=== PATIENT | female | born 1960 | race Caucasian/White ===

== ENCOUNTER 2017-04-15 10:55 | Day surgery (SDC) | payer BC, OTHER ==
[~2017-04-15 10:55] MED LIST: Lactated Ringers 1,000 ML IV SCH
--- NOTE | 2017-04-15 12:02 | PCM.PREANE ---
Preanesthetic Assessment - Anesthesia/Transfusion/Family Hx Anesthesia History: Prior Anesthesia Without Reaction Family History of Anesthesia Reaction: No Transfusion History: No Prior Transfusion(s) Intubation History: Unknown - Review of Systems General: No Symptoms Pulmonary: No Symptoms Cardiovascular: No Symptoms Gastrointestinal: No Symptoms, Other (family h/o colon cancer) Neurological: No Symptoms Other: Reports: None - Physical Assessment O2 Sat by Pulse Oximetry: 97 Respiratory Rate: 16 Vital Signs: Last Vital Signs Temp 36.1 C 04/15/17 11:06 Pulse 82 04/15/17 11:06 Resp 16 04/15/17 11:06 BP 149/80 H 04/15/17 11:06 Pulse Ox 97 04/15/17 11:06 Height: 1.6 m Weight: 102.058 kg ASA Class: 2 Mental Status: Alert & Oriented x3 Airway Class: Mallampati = 2 Dentition: Reports: Normal Dentition Thyro-Mental Finger Breadths: 3 Mouth Opening Finger Breadths: 3 ROM/Head Extension: Full Lungs: Clear to Auscultation, Normal Respiratory Effort Cardiovascular: Regular Rate, Regular Rhythm - Allergies Allergies/Adverse Reactions: Allergies Allergy/AdvReac Type Severity Reaction Status Date / Time seasonal allergies Allergy Itching Uncoded 02/21/14 21:07 - Blood Blood Available: No - Anesthesia Plan Pre-Op Medication Ordered: None - Acknowledgements Anesthesia Type Planned: MAC Pt an Appropriate Candidate for the Planned Anesthesia: Yes Alternatives and Risks of Anesthesia Discussed w Pt/Guardian: Yes Pt/Guardian Understands and Agrees with Anesthesia Plan: Yes PreAnesthesia Questionnaire HEENT History: Reports: Other (See Below) Other HEENT History: wears glasses Cardiovascular History: Reports: High Cholesterol, Hypertension Gastrointestinal History: Reports: None Genitourinary History: Reports: None Psychiatric History: Reports: Anxiety, Depression Endocrine/Metabolic History: Reports: Obesity/BMI 30+ (BMI 39.9) Hematologic History: Reports: Iron Deficiency Oncologic (Cancer) History: Reports: Other (See Below) Other Oncologic History: uterine - Past Surgical History Head Surgeries/Procedures: Reports: None GI Surgical History: Reports: Colonoscopy Female Surgical History: Reports: Hysterectomy, Salpingo-Oophorectomy Other Female Surgeries/Procedures: laparoscopy, hysterectomy for uterine cancer - SUBSTANCE USE Smoking Status *Q: Never Smoker Second Hand Smoke Exposure: No Days Per Week of Alcohol Use: 0 Recreational Drug Use History: No - HOME MEDS Home Medications: Home Meds Calcium Carbonate/Vitamin D3 [Calcium 600 + Vit D 400] 1 tab PO BID 02/21/14 [ History] Metoprolol Succinate 50 mg PO DAILY 02/21/14 [History] Multivitamin [Multi Vitamin Daily] 1 tab PO DAILY 02/21/14 [History] Cholecalciferol (Vitamin D3) [Vitamin D3] 2 tab PO BID 04/10/17 [History] Ferrous Sulfate [Iron] 325 mg PO ASDIRECTED 04/10/17 [History] Fish Oil/DHA/EPA [Fish Oil 1,200 MG] 2 tab PO BID 04/10/17 [History] Hydrochlorothiazide 25 mg PO DAILY 04/10/17 [History] Hypromellose [Genteal Severe] 1 applic EYEBOTH BID 04/10/17 [History] Potassium Chloride 10 meq PO DAILY 04/10/17 [History] Venlafaxine HCl [Venlafaxine HCl ER] 75 mg PO DAILY 04/10/17 [History] atorvaSTATin Calcium [Atorvastatin Calcium] 10 mg PO BEDTIME 04/10/17 [History] diphenhydrAMINE HCl [Diphenhydramine HCl] 25 mg PO ASDIRECTED PRN 04/10/17 [ History] - CURRENT (IN HOUSE) MEDS Current Meds: Current Medications Lactated Ringer's (Ringers, Lactated) 1,000 mls @ 125 mls/hr IV ASDIRECTED ANNALISA Last Admin: 04/15/17 11:05 Dose: 125 mls/hr
[2017-04-15] MEDS ORDERED: Lidocaine 2% 5 ML SDV ONE (12:32)
[2017-04-15] MEDS ORDERED: Midazolam 1 MG/ML 2 ML SDV ONE (12:32)
[2017-04-15] MEDS ORDERED: fentaNYL 100 MCG/2 ML SDV ONE (12:32)
[2017-04-15] MEDS ORDERED: Propofol 200 MG/20 ML SDV ONE ×2 (12:32→12:33)
--- NOTE | 2017-04-15 13:41 | PCM.OPNOTE ---
- General Post-Op/Procedure Note Date of Surgery/Procedure: 04/15/17 Operative Procedure(s): Colonoscopy Pre Op Diagnosis: Desire for colorectal cancer screening Post-Op Diagnosis: Same Anesthesia Technique: MAC (ASA II) Primary Surgeon: Rah Sultana Condition: Good Free Text/Narrative:: Dictation [id number] CPT CODE 81167
[2017-04-15] MEDS ORDERED: Lactated Ringers 1,000 ML IV SCH (13:45)
[2017-04-15 14:20] VITALS: BP 131/75
--- NOTE | 2017-04-15 19:03 | OR ---
SURGEON: Rah Sultana M.D. DATE OF PROCEDURE: 04/15/2017 OPERATION PERFORMED: Colonoscopy. ANESTHESIA: MAC. ASA CLASSIFICATION: II. PREOPERATIVE DIAGNOSIS: Desire for colorectal cancer screening. POSTOPERATIVE DIAGNOSIS: No evidence of neoplasia. DESCRIPTION OF PROCEDURE: The patient was taken to the endoscopy room, positioned on the endoscopy table in the left lateral decubitus position. Time-out was called for appropriate identification of the patient and procedure. Monitored anesthesia care was provided. The colonoscope was inserted into the rectum and advanced without difficulty to the cecum where the colonoscope was retroflexed to visualize the ascending colon from below. The cecum was identified by internal landmarks and external pressure. The colonoscope was then slowly withdrawn. The cecum, ascending colon, hepatic flexure, transverse colon, splenic flexure, descending colon, sigmoid colon, and rectum were very well visualized. There were no tumors, polyps, diverticula, or angiodysplastic changes. There was no evidence of inflammatory bowel disease. Once the colonoscope was withdrawn to the rectum, it was retroflexed to visualize the anal orifice from above. Again, no tumors or polyps were seen and there were no acute hemorrhoidal changes. The colonoscope was straightened, the rectum aspirated, and the colonoscope removed. The patient tolerated the procedure well and was taken to recovery room in stable condition. JOSIAH JAY /[id number]
== END 2017-04-15 14:34 | disposition home or self-care (01) ==
LOC: MW.SDS 10:55
PROVIDERS: ATTEND Surgery
DX: Z12.11 Encounter for screening for malignant neoplasm of colon (principal); F41.9 Anxiety disorder, unspecified; F32.9 Major depressive disorder, single episode, unspecified; I10 Essential (primary) hypertension; E78.00 Pure hypercholesterolemia, unspecified; E66.9 Obesity, unspecified; E61.1 Iron deficiency; Z80.0 Family history of malignant neoplasm of digestive organs; Z79.899 Other long term (current) drug therapy; Z90.710 Acquired absence of both cervix and uterus; Z90.721 Acquired absence of ovaries, unilateral; Z98.890 Other specified postprocedural states; Z68.39 Body mass index [BMI] 39.0-39.9, adult
CPT/HCPCS: 45378; J2250; J3010; J7120; 00810; J2704

== ENCOUNTER 2020-08-18 06:37 | Day surgery (SDC) | payer OTHER ==
--- NOTE | 2020-08-18 07:19 | PCM.PREANE ---
Preanesthetic Assessment - Anesthesia/Transfusion/Family Hx Anesthesia History: Prior Anesthesia Without Reaction Family History of Anesthesia Reaction: No Transfusion History: No Prior Transfusion(s) Intubation History: Unknown - Review of Systems General: No Symptoms, Night Sweats Cardiovascular: No Symptoms Neurological: No Symptoms Other: Reports: None - Physical Assessment NPO Status Date: 08/17/20 Vital Signs: Last Vital Signs Temp 97.7 F 08/18/20 06:45 Pulse 96 08/18/20 06:45 Resp 16 08/18/20 06:45 BP 179/89 H 08/18/20 06:45 Pulse Ox 97 08/18/20 06:45 Height: 5 ft 3 in Weight: 102.965 kg ASA Class: 2 Mental Status: Alert & Oriented x3 Airway Class: Mallampati = 2 Dentition: Reports: Normal Dentition ROM/Head Extension: Full Lungs: Clear to Auscultation, Normal Respiratory Effort Cardiovascular: Regular Rate, Regular Rhythm - Allergies Allergies/Adverse Reactions: Allergies Allergy/AdvReac Type Severity Reaction Status Date / Time seasonal allergies Allergy Itching Uncoded 08/12/20 08:20 - Blood Blood Available: No - Anesthesia Plan Pre-Op Medication Ordered: None - Acknowledgements Anesthesia Type Planned: General Anesthesia (tiva) Pt an Appropriate Candidate for the Planned Anesthesia: Yes Alternatives and Risks of Anesthesia Discussed w Pt/Guardian: Yes Pt/Guardian Understands and Agrees with Anesthesia Plan: Yes PreAnesthesia Questionnaire HEENT History: Reports: Other (See Below) Other HEENT History: wears glasses Cardiovascular History: Reports: High Cholesterol, Hypertension Respiratory History: Reports: None Gastrointestinal History: Reports: None Genitourinary History: Reports: None Musculoskeletal History: Reports: Arthritis Neurological History: Reports: None Psychiatric History: Reports: Anxiety, Depression Endocrine/Metabolic History: Reports: Obesity/BMI 30+ Hematologic History: Reports: Iron Deficiency Immunologic History: Reports: None Oncologic (Cancer) History: Reports: Other (See Below) Other Oncologic History: uterine Dermatologic History: Reports: None - Infectious Disease History Infectious Disease History: Reports: Chicken Pox - Past Surgical History Head Surgeries/Procedures: Reports: None HEENT Surgical History: Reports: None Cardiovascular Surgical History: Reports: None Respiratory Surgical History: Reports: None GI Surgical History: Reports: Colonoscopy Female Surgical History: Reports: Hysterectomy, Salpingo-Oophorectomy Other Female Surgeries/Procedures: laparoscopy, hysterectomy for uterine cancer Endocrine Surgical History: Reports: None Neurological Surgical History: Reports: None Musculoskeletal Surgical History: Reports: None Oncologic Surgical History: Reports: None Dermatological Surgical History: Reports: None - SUBSTANCE USE Tobacco Use Status *Q: Never Tobacco User - HOME MEDS Home Medications: Home Meds Calcium Carbonate/Vitamin D3 [Calcium 600 + Vit D 400] 1 tab PO BID 02/21/14 [History] Metoprolol Succinate 50 mg PO DAILY 02/21/14 [History] Multivitamin [Multi Vitamin Daily] 1 tab PO DAILY 02/21/14 [History] Cholecalciferol (Vitamin D3) [Vitamin D3] 2 tab PO BID 04/10/17 [History] Ferrous Sulfate [Iron] 1 tab PO DAILY 04/10/17 [History] Fish Oil/DHA/EPA [Fish Oil 1,200 MG] 2 tab PO BID 04/10/17 [History] Hydrochlorothiazide 25 mg PO DAILY 04/10/17 [History] Hypromellose [Genteal Severe] 1 applic EYEBOTH BID 04/10/17 [History] Potassium Chloride 10 meq PO DAILY 04/10/17 [History] Venlafaxine HCl [Venlafaxine HCl ER] 75 mg PO DAILY 04/10/17 [History] atorvaSTATin Calcium [Atorvastatin Calcium] 10 mg PO BEDTIME 04/10/17 [History] diphenhydrAMINE HCL [Diphenhydramine HCl] 25 mg PO ASDIRECTED PRN 04/10/17 [History] - CURRENT (IN HOUSE) MEDS Current Meds: Current Medications Lactated Ringer's (Ringers, Lactated) 1,000 mls @ 125 mls/hr IV ASDIRECTED ANNALISA
[2020-08-18] MEDS ORDERED: Propofol 200 MG/20 ML SDV ONE (07:26)
--- NOTE | 2020-08-18 09:18 | PCM.OPNOTE ---
- General Post-Op/Procedure Note Date of Surgery/Procedure: 08/18/20 Operative Procedure(s): Colonoscopy with random biopsies and polypectomies Findings: Small, likely hyperplastic polyps in the rectum. Random biopsies of colon done. dictation number [id number] Pre Op Diagnosis: Loose stools Post-Op Diagnosis: Small, likely hyperplastic polyps in the rectum Primary Surgeon: Lukas Stahl Pathology: random biopsies, polyps Complications: None Condition: Good
[2020-08-18 09:36] VITALS: BP 122/71; PULSE 77
--- NOTE | 2020-08-18 10:11 | PCM48HPAN ---
Post Anesthesia Note - EVALUATION WITHIN 48HRS OF ANESTHETIC Vital Signs in Normal Range: Yes Patient Participated in Evaluation: Yes Respiratory Function Stable: Yes Airway Patent: Yes Cardiovascular Function Stable: Yes Hydration Status Stable: Yes Pain Control Satisfactory: Yes Nausea and Vomiting Control Satisfactory: Yes Mental Status Recovered: Yes Vital Signs: Last Vital Signs Temp 98.2 F 08/18/20 09:28 Pulse 77 08/18/20 09:28 Resp 15 08/18/20 09:28 BP 122/71 08/18/20 09:28 Pulse Ox 97 08/18/20 09:28
--- NOTE | 2020-08-18 10:11 | PCM.POSTAN ---
POST ANESTHESIA ASSESSMENT - MENTAL STATUS Mental Status: Alert, Oriented - VITAL SIGNS Vital Signs: Last Vital Signs Temp 98.2 F 08/18/20 09:28 Pulse 77 08/18/20 09:28 Resp 15 08/18/20 09:28 BP 122/71 08/18/20 09:28 Pulse Ox 97 08/18/20 09:28 - RESPIRATORY Respiratory Status: Respiratory Rate WNL, Airway Patent, O2 Saturation Stable - CARDIOVASCULAR CV Status: Pulse Rate WNL, Blood Pressure Stable - GASTROINTESTINAL GI Status: No Symptoms - POST OP HYDRATION Hydration Status: Adequate & Stable
--- NOTE | 2020-08-18 12:42 | OR ---
SURGEON: SYLVESTER JACKSON MD DATE OF PROCEDURE: 08/18/2020 PREOPERATIVE DIAGNOSIS: Loose stools. POSTOPERATIVE DIAGNOSES: 1. Small likely hyperplastic polyps in rectum. 2. Noninflamed internal hemorrhoids. PROCEDURE PERFORMED: Colonoscopy with random biopsies of colon and then cold biopsy polypectomy of small rectal polyps. PRIMARY SURGEON: Sylvester Jackson MD ANESTHESIA: With Anesthesiology. EXTENT OF COLONOSCOPY: To the cecum. WITHDRAWAL TIME: About 8 minutes. LIMITATIONS: None. REASON FOR PROCEDURE: The patient is a pleasant 59-year-old female. Her last colonoscopy was in 2017, this was normal. She does have a family history of colon cancer with her mother having colon cancer. For the past 6 months, she said that she has loose stools. She is having bowel movements 2 to 6 times a day. They are usually very watery. She also was having some abdominal cramping with the bowel movements. When she has a bowel movement, the cramping goes away. PROCEDURE IN DETAIL: Physical examination was performed. The major risks and benefits associated with the procedure were explained to the patient in detail. The patient verbalized understanding and agreement of the same. The patient was then connected to appropriate monitoring device and IV was started. EKG, pulse, pulse oximetry, blood pressure, and capnography were monitored throughout the entire procedure. Continuous oxygen and sedation were provided by the anesthesiologist. The patient was placed in left lateral decubitus position, sedation was began. Again after adequate sedation was achieved, digital rectal exam was performed. No rectal masses or polyps were felt. Now, a well-lubricated Olympus colonoscope was entered into the rectum and advanced under direct visualization to the level of the cecum. Cecum was identified by both visual and anatomic landmarks. Photographs were taken of the cecal cap and the terminal ileum. The scope was then slowly withdrawn in somewhat circular fashion looking at the color, texture, anatomy, and integrity of the mucosa from the cecum to the anal canal. The patient had an excellent bowel prep, just very minimal suction and irrigation needed. The patient had a normal-looking mucosa, so random biopsies were done throughout the cecum to the rectum to check for any microscopic colitis. Scope was retroflexed in the rectum. She did appear to have some hyperplastic polyps right in the rectum. These were removed with cold biopsy polypectomy. Good hemostasis. The patient also had some small noninflamed internal hemorrhoids. Scope was then completely removed and procedure was terminated. ENDOSCOPIC DIAGNOSES: 1. Small likely hyperplastic rectal polyps. 2. Noninflamed internal hemorrhoids. RECOMMENDATIONS: Followup colonoscopy will depend on pathology, but most likely will need another one in 5 to 10 years. She will need one sooner if she develops signs and symptoms such as change in bowel habits or blood in her stool. ELODIA / MISTY /[id number]
== END 2020-08-18 09:43 | disposition home or self-care (01) ==
LOC: MW.SDS 06:37
PROVIDERS: ATTEND Surgery
DX: K62.1 Rectal polyp (principal); K64.8 Other hemorrhoids; I10 Essential (primary) hypertension; E78.00 Pure hypercholesterolemia, unspecified; E66.9 Obesity, unspecified; Z80.0 Family history of malignant neoplasm of digestive organs; Z98.890 Other specified postprocedural states; Z79.899 Other long term (current) drug therapy; Z91.048 Other nonmedicinal substance allergy status; Z68.41 Body mass index [BMI] 40.0-44.9, adult
CPT/HCPCS: 45380; 88305; J2704; J7120; 00811